=== PATIENT | female | born 1955 | race Caucasian/White ===

== ENCOUNTER 2017-11-01 13:18 | Emergency (ER) | payer OTHER ==
[~2017-11-01] VITALS: Ht 167.6 cm; Wt 77.1 kg
[2017-11-01] MEDS ORDERED: ULTRACET PO (15:54)
== END 2017-11-01 16:55 | disposition home or self-care (01) ==
LOC: ER 13:18
DX: S82.61XA Displaced fracture of lateral malleolus of right fibula, initial encounter for closed fracture (principal); W18.39XA Other fall on same level, initial encounter; Y93.89 Activity, other specified; Y92.511 Restaurant or cafe as the place of occurrence of the external cause; Y99.8 Other external cause status

== ENCOUNTER 2017-11-22 08:29 | Outpatient (CLI) | payer OTHER ==
[~2017-11-22 08:29] MED LIST: ULTRACET PO
== END 2017-11-22 08:32 | disposition home or self-care (01) ==
LOC: RAD 08:29
DX: S93.491A Sprain of other ligament of right ankle, initial encounter (principal)